=== PATIENT | female | born 1960 | race Caucasian/White ===

== ENCOUNTER 2022-09-13 10:07 | Day surgery (SDC) | payer BC ==
[2022-09-11 13:38] VITALS: BMI 20.7
[~2022-09-13 10:07] MED LIST: DEXAMETHASONE SOD PHOSPHATE 4 MG/ML 1 ML VIAL IV ONE; HYDROmorphone 0.5 MG/0.5 ML SYRINGE IVP PRN; LACTATED RINGERS 1,000 ML IV SCH; LIDOCAINE 1% (10MG/ML) FOR IV START INTRADERMA PRN; MIDAZOLAM 2 MG/2 ML VIAL IV PRN; ONDANSETRON 4 MG/2 ML VIAL IVP ONE; Pre Op ABX Message 1 EACH MISC MISCELLANE ONE
[2022-09-13 10:49] VITALS: TEMP 98.3
[2022-09-13] MEDS ORDERED: MIDAZOLAM 2 MG/2 ML VIAL IV ONE ×2 (10:59→11:03)
[2022-09-13] MEDS ORDERED: fentaNYL (PF) 50 MCG/1 ML VIAL IV ONE ×2 (11:00→11:04)
--- NOTE | 2022-09-13 11:26 | P.ANPRN ---
Procedure Note - Anesthesia - Nerve Block Performed Right Adductor Canal Time Out Performed: Yes (:58) Date of Procedure: 09/13/22 Procedure Start Time: Procedure Stop Time: 11:03 Location of Patient: PreOp Indication: Acute Post-Operative Pain, Requested by Surgeon (Dr Garcia) Sedation Type: Sedate with meaningful contact maintained Preparation: Sterile Prep Position: Supine Catheter: None Needle Types: Pajunk Needle Gauge: 21 Ultrasound used to visualize needle placement: Yes Ultrasound used to observe medication spread: Yes Injectate: 0.5% Ropivacaine (see comment for volume) (20cc) Blood Aspirated: No Pain Paresthesia on Injection Noted: No Resistance on Injection: Normal Image Stored and Saved: Yes Events: Uneventful and Well Tolerated
--- NOTE | 2022-09-13 11:27 | P.ANPRN ---
Procedure Note - Anesthesia - Nerve Block Performed Right Popliteal Time Out Performed: Yes Date of Procedure: 09/13/22 Procedure Start Time: 11:04 Procedure Stop Time: 11:09 Location of Patient: PreOp Indication: Acute Post-Operative Pain, Requested by Surgeon (DR Garcia) Sedation Type: Sedate with meaningful contact maintained Preparation: Sterile Prep Position: Left Lateral Catheter: None Needle Types: Pajunk Needle Gauge: 21 Ultrasound used to visualize needle placement: Yes Ultrasound used to observe medication spread: Yes Injectate: 0.5% Ropivacaine (see comment for volume) (15cc +5cc PF Normal saline) Blood Aspirated: No Pain Paresthesia on Injection Noted: No Resistance on Injection: Normal Image Stored and Saved: Yes Events: Uneventful and Well Tolerated
[2022-09-13] MEDS ORDERED: MIDAZOLAM 2 MG/2 ML VIAL ONE (12:22)
[2022-09-13] MEDS ORDERED: LIDOCAINE 2% INJ 20 MG/ML (2 ML VIAL) ONE (12:22)
[2022-09-13] MEDS ORDERED: fentaNYL (PF) 50 MCG/ML 2 ML AMP ONE (12:22)
[2022-09-13] MEDS ORDERED: SODIUM CHLORIDE 0.9% (PF) 10 ML VIAL ONE (12:22)
[2022-09-13] MEDS ORDERED: ePHEDrine 50 MG/ML 1 ML VIAL ONE (12:22)
[2022-09-13] MEDS ORDERED: ROPIVACAINE 5 MG/ML 30 ML VIAL ONE (12:22)
[2022-09-13] MEDS ORDERED: PROPOFOL 10 MG/ML 20 ML VIAL IV ONE (12:22)
[2022-09-13] MEDS ORDERED: SODIUM CHLORIDE 0.9% 100 ML with ceFAZolin 2,000 MG IV ONE ×2 (12:27)
[2022-09-13] MEDS ORDERED: ceFAZolin 1,000 MG in SODIUM CHLORIDE 0.9% 1,000 ML IRRIGATION ONE (12:27)
[2022-09-13] MEDS ORDERED: HEPARIN SODIUM 1,000 UN/ML (10ML VL) MISCELLANE ONE (12:51)
[2022-09-13] MEDS ORDERED: LACTATED RINGERS 1,000 ML IV ONE (13:25)
[2022-09-13 14:43] VITALS: RESP 16
--- NOTE | 2022-09-13 15:03 | P.OP ---
Date of Procedure: 09/13/22 Preoperative Diagnosis: Subchondral cyst right talus Postoperative Diagnosis: Same Procedure(s) Performed: 1. Medial malleolar osteotomy right ankle 2. Repair of cysts in right talus with allograft 3. Aspiration of bone marrow right ankle Implants: Arthrex: 4 hole one third tubular plate, 4.0 cancellous screw, 3.5 locking screw, 4.0 partially-threaded cannulated screw 2, biocartilage, Allosync Anesthesia: GETA Surgeon: Jacky Garcia Estimated Blood Loss (ml): 65 Pathology: none sent Condition: stable Disposition: PACU Description of Procedure: Prior to the patient being brought to the operating room, anesthesia administered a nerve block on the right lower extremity. The patient was brought into the operating room and placed on table in the supine position. Timeout was taken to confirm correct patient identifiers, correct laterality of surgery, and correct procedure. Once all staff in the room were in agreement with the timeout, the patient was induced and placed under general anesthesia. A well-padded tourniquet was placed on the right thigh and then the right leg was prepped and draped in the usual manner. Attention directed to the anterior medial aspect of the lower leg superior to the ankle joint, where a small stab incision was made over the tibial crest. The incision was bluntly dissected down to the tibia and then a Jamshidi needle was inserted and the medullary canal. 60 mL of marrow aspirate was then obtained and passed off the field to be spun down to its concentrated elements. A linear incision was made over the midline of the medial malleolus. It was deepened down the saphenous tissue careful to identify, avoid, and retract any neurovascular structures and cauterize any bleeding vessels. Dissection was done medial and laterally to expose the width of the medial malleolus. Guidewires for 4.0 partially threaded cannulated screws were placed at the tip of the medial malleolus and advanced into the tibia. The wire alignment was checked both the AP mortise and lateral views. Then over drilling was performed and the wires removed. Under live fluoroscopic visualization the entry points of the medial malleolar osteotomy was identified. The saw was placed at this entry point and then angled towards the tibial plafond but aiming enough laterally to allow for full exposure of the defect of the talus. The saw was advanced as before entering the ankle joint. Blunt osteotome was then used to complete the osteotomy. The anterior ankle joint capsule was incised from the medial malleolus however the deltoid ligaments were left intact. A small incision was also made posteriorly to protect the posterior tibial tendon. Then the osteotomy fragment was then rotated's for to allow for exposure of the medial talar dome. The cartilaginous surface of the talus was probed and there was frayed and loose cartilage on the medial talar dome as well as the medial shoulder. All loose cartilage was sharply removed leaving clean edges. An osteotome was then used and of the subchondral bone and then the cyst that was visible on MRI was encountered. A large curette was then used to evacuate the components of the cyst and also remove the subchondral bone down to bleeding medullary bone. A small wire was then used to fenestrate the bony surface. Then the wound is thoroughly irrigated with antibiotic saline. During the time of the osteotomy Allosync and the bone marrow concentrate were mixed together and then that was placed into the bony defect but not full-thickness to allow for room for the biocartilage. Once the bone graft was placed the bio cartilage was then placed over the bone graft and smoothed to match the natural contour the talus. Then Tisseel was placed over the bowel cartilage and was allowed to cure for 5 minutes. The medial malleolar osteotomy fragment was then carefully rotated back into position and realigned. The guidewires were placed into the drill holes and aligned with the drill holes on the proximal aspect of the osteotomy. Partially threaded 4.0 cannulated screws were inserted over the guidewires and they were and advanced until the heads engaged the medial malleolus but did not compress it. A 4 hole one third tubular plate was then placed over the medial malleolus and then it was bent and contoured to match the contour of the medial malleolus. 2 holes were placed superior to the osteotomy and 2 holes anterior. The plate position was adjusted under fluoroscopic visualization and then temporarily fixated once it was in proper position. The drill holes made through the plate on the first hole proximal to the osteotomy. A 4.0 cannulated screw was then placed and advanced until it engaged the plate and allowed for buttressing of the osteotomy. Fluoroscopic imaging showed almost near complete reduction of the osteotomy. The cannulated screws were then advanced until a compressed the osteotomy completely. Then a small locking screws placed in the most distal hole the plate to secure its positioning. All temporary fixation was removed and the wound irrigated with antibiotic saline. Deep closure done with 2-0 Vicryl's. Subcu closure done for Monocryl. Skin closure was done with 4-0 Stratafix in a running subcuticular manner. Dermal glue was applied and allowed to dry. Steri-Strips are placed over the incision. An Arthrex jumpstart dressing and a dry sterile dressing applied to the right ankle. Tourniquet was released and capillary refill return to all digits on the right foot. The patient was then placed in a well-padded, well molded plaster posterior mold/sugar tong splint. The Ankle was held in neutral position until the splint was dried. Then anesthesia was reversed and the patient was taken recovery with vital signs stable.
[2022-09-13 15:52] VITALS: BP 143/82; PULSE 64
== END 2022-09-13 16:06 | disposition home or self-care (01) ==
LOC: OR 10:07
PROVIDERS: ATTEND Podiatrist
DX: M85.671 Other cyst of bone, right ankle and foot (principal); G89.18 Other acute postprocedural pain; E07.9 Disorder of thyroid, unspecified; Z79.890 Hormone replacement therapy; F10.20 Alcohol dependence, uncomplicated
CPT/HCPCS: 64447; 64445; 27705; 28103; C1713 ×2; C1762; J2250; J1100; J2405; J0690; J3010 ×2; J1644; J2795; J2704; J2001

== ENCOUNTER 2023-11-05 08:22 | Day surgery (SDC) | payer BC ==
[2023-11-03 14:30] VITALS: BMI 20.7
[~2023-11-05 08:22] MED LIST changes: -DEXAMETHASONE SOD PHOSPHATE 4 MG/ML 1 ML VIAL IV ONE; -HYDROmorphone 0.5 MG/0.5 ML SYRINGE IVP PRN; -LIDOCAINE 1% (10MG/ML) FOR IV START INTRADERMA PRN; -MIDAZOLAM 2 MG/2 ML VIAL IV PRN; -ONDANSETRON 4 MG/2 ML VIAL IVP ONE; -Pre Op ABX Message 1 EACH MISC MISCELLANE ONE
[2023-11-05 08:42] VITALS: TEMP 97.4
[2023-11-05] MEDS: IV FLUID CONTINUATION 1,000 ML IV ONE (08:42)
[2023-11-05] MEDS: LACTATED RINGERS 1,000 ML IV SCH (08:43)
[2023-11-05] MEDS ORDERED: PROPOFOL 10 MG/ML 20 ML VIAL IV ONE (09:07)
--- NOTE | 2023-11-05 09:27 | P.PCN ---
Date of Procedure: 11/05/23 Procedure(s) Performed: BRIEF HISTORY: Patient is a 63-year-old pleasant white female scheduled for an elective colonoscopy as a part of being for colon cancer. PROCEDURE PERFORMED: Colonoscopy. PREOPERATIVE DIAGNOSIS: Screening for colon cancer. IV sedation per Anesthesia. PROCEDURE: After informed consent was obtained, the patient, was brought into the endoscopy unit. IV sedation was administered by Anesthesia under continuous monitoring. Digital rectal examination was normal. Initially the Olympus CF-160 flexible video colonoscope was then inserted in the rectum, gradually advanced into the cecum without any difficulty. Careful examination was performed as the scope was gradually being withdrawn. Ileocecal valve and the appendiceal orifice were visualized and appeared normal. Prep was excellent. Mucosa of the cecum, ascending colon, transverse colon, descending colon, sigmoid colon, and rectum appeared normal. Retroflexion was performed in the rectum and no lesions were seen. The patient tolerated the procedure well. IMPRESSION: Normal-appearing colon from rectum to cecum with no evidence of colorectal neoplasia. RECOMMENDATIONS: Findings of this examination were discussed with the patient as well as her family. She was still repeat screening colonoscopy in 10 years..
[2023-11-05 09:34] VITALS: RESP 16
[2023-11-05 09:46] VITALS: BP 117/77; PULSE 58
== END 2023-11-05 10:12 | disposition home or self-care (01) ==
LOC: ORWHC2ENDO 08:22
PROVIDERS: ATTEND Internal Medicine Gastroenterology
DX: Z12.11 Encounter for screening for malignant neoplasm of colon (principal); E07.9 Disorder of thyroid, unspecified; Z79.890 Hormone replacement therapy
CPT/HCPCS: 45378; J2704